=== PATIENT | male | born 1975 | race Caucasian/White ===

== ENCOUNTER 2018-12-16 01:38 | Emergency (ER) | payer SELFPAY ==
[~2018-12-16] VITALS: Ht 170.2 cm; Wt 69.0 kg
[2018-12-16] MEDS ORDERED: SODIUM CHLORIDE 0.9% 1,000 ML IV ONE (03:15)
[2018-12-16 03:22] LABS: BASOPHILS % 0.5 % (0.0-2.0); EOSINOPHILS % 1.4 % (0.0-5.0); HEMATOCRIT. 43.7 % (42.0-52.0); HEMOGLOBIN. 15.1 g/dL (14.0-18.0); LYMPHOCYTES % 25.8 % (20.0-50.0); MEAN CORPUSCULAR HEMOGLOBIN 31.1 pg (28.0-32.0); MEAN CORPUSCULAR VOLUME 89.7 fL (80.0-94.0); MEAN PLATELET VOLUME 8.2 fl (7.4-10.4); MONOCYTES % 6.7 % (2.0-8.0); NEUTROPHILS % 65.6 % (40.0-76.0); PLATELET 257 x1000/uL (130-400); RED BLOOD CELL COUNT 4.87 mill/uL (4.7-6.1); RED CELL DISTRIBUTION WIDTH 12.8 % (11.6-14.6)
[2018-12-16 03:43] LABS: CHLORIDE 104 mEq/L (98-107)
[2018-12-16 07:24] VITALS: BP 125/85
== END 2018-12-16 09:45 | disposition home or self-care (01) ==
LOC: ER 01:38
DX: R42 Dizziness and giddiness (principal); Z91.81 History of falling; R07.89 Other chest pain
CPT/HCPCS: 36415; 71045; 80048; 80076; 84484; 85025; 93005; 99284; J7030; Z7610

== ENCOUNTER 2024-09-14 00:24 | Emergency (ER) | payer MEDICAID ==
[~2024-09-14] VITALS: Ht 170.2 cm; Wt 78.0 kg
[2024-09-14 00:35] VITALS: O2SAT 99
[2024-09-14 02:46] LABS: CHLORIDE 100 mEq/L (98-107); POTASSIUM 3.9 mEq/L (3.5-5.1); SODIUM 135 mEq/L (136-145)
[2024-09-14 02:47] LABS: CARBON DIOXIDE 28 mEq/L (21-32)
[2024-09-14 02:52] LABS: CREATININE 0.7 mg/dL (0.6-1.3); UREA NITROGEN BLOOD 23 mg/dL (9-23)
[2024-09-14 03:22] LABS: BASOPHILS % 0.3 % (0.0-2.0); EOSINOPHILS % 0.7 % (0.0-5.0); HEMATOCRIT. 35.4 % (42.0-52.0); HEMOGLOBIN. 12.1 g/dL (14.0-18.0); LYMPHOCYTES % 11.2 % (20.0-50.0); MEAN CORPUSCULAR HEMOGLOBIN 31.5 pg (28.0-32.0); MEAN CORPUSCULAR HGB CONC 34.2 g/dL (31.0-37.0); MEAN PLATELET VOLUME 8.1 fl (7.4-10.4); MONOCYTES % 10.2 % (2.0-8.0); NEUTROPHILS % 77.6 % (40.0-76.0); PLATELET 253 x1000/uL (130-400); RED BLOOD CELL COUNT 3.85 mill/uL (4.7-6.1); RED CELL DISTRIBUTION WIDTH 12.2 % (11.6-14.6); WHITE BLOOD COUNT 10.1 x1000/uL (4.5-11.0)
[2024-09-14] MEDS ORDERED: BO1 TP (04:26)
[2024-09-14] MEDS ORDERED: ACET-2708 MT (04:26)
[2024-09-14 04:52] VITALS: BP 113/71; PULSE 96; RESP 20; TEMP 36.7; O2SAT 100
[2024-09-14 04:52] LABS: ETHANOL BLOOD < 10 mg/dL (<10); GLUCOSE 210 mg/dL (70-105)
== END 2024-09-14 04:54 | disposition home or self-care (01) ==
LOC: ER 00:24
DX: M79.675 Pain in left toe(s) (principal); E11.9 Type 2 diabetes mellitus without complications
CPT/HCPCS: 36415; 73630; 80048; 80320; 85025; 99284; G0480